=== PATIENT | female | born 1995 | race Two or more races ===

== ENCOUNTER → 2021-11-30 | Outpatient (CLI) | payer MEDICAID ==
[2021-11-30 12:50] LABS: Basophils # (auto) 0 10 ^3/uL (0-0.2); Basophils % (auto) 0.4 % (0.0-2.0); Eosinophils # (auto) 0.1 10 ^3/uL (0-0.8); Eosinophils % (auto) 0.9 % (0.0-7.0); Hematocrit 38.9 % (36.0-46.0); Hemoglobin 13.4 g/dL (12.2-16.2); Lymphocytes # (auto) 1.6 10 ^3/uL (0.4-5.4); Lymphocytes % (auto) 22.4 % (10.0-50.0); Mean Corpuscular Hemoglobin 30.8 pg (28.0-32.0); Mean Corpuscular Hgb Conc. 34.3 g/dL (32.0-36.0); Mean Corpuscular Volume 89.6 fL (80.0-100.0); Monocytes # (auto) 0.4 10 ^3/uL (0-1.3); Monocytes % (auto) 5.6 % (0.0-12.0); Neutrophils # (auto) 5.2 10 ^3/uL (1.6-8.6); Neutrophils % (auto) 70.7 % (37.0-80.0); Nucleated Red Blood Cells % 0.1 %; Red Blood Cells 4.34 10^6/uL (4.0-5.20); White Blood Cell 7.3 10^3/uL (4.4-10.8)
[2021-11-30 13:13] LABS: Alcohol, Urine < 3.0 mg/dL (0-10); Amphetamine Screen, Urine NEGATIVE (NEGATIVE); Barbiturate Scree,Urine NEGATIVE (NEGATIVE); Benzodiazephine Screen, Urine NEGATIVE (NEGATIVE); Cannabinoid Screen, Urine NEGATIVE (NEGATIVE); Cocaine Screen, Urine NEGATIVE (NEGATIVE); Opiate Scree,Urine NEGATIVE (NEGATIVE); Phencyclidine Screen, Urine NEGATIVE (NEGATIVE)
[2021-12-01 06:06] LABS: RPR Non Reactive (Non Reactive)
== END | disposition home or self-care (01) ==
LOC: LAB 12:02
PROVIDERS: ATTEND Obstetrics & Gynecology
DX: Z34.00 Encounter for supervision of normal first pregnancy, unspecified trimester (principal); Z31.430 Encounter of female for testing for genetic disease carrier status for procreative management; N39.0 Urinary tract infection, site not specified; N36.0 Urethral fistula
CPT/HCPCS: 36415; 80307; 83036; 84112; 84702; 85025; 86592; 86703; 86762; 86850; 86900; 86901; 87086; 87340

== ENCOUNTER → 2022-01-25 | Outpatient (CLI) | payer MEDICAID | END | disposition home or self-care (01) | LOC: LAB 10:36 | PROVIDERS: ATTEND Obstetrics & Gynecology | DX: Z34.80 Encounter for supervision of other normal pregnancy, unspecified trimester (principal) | CPT/HCPCS: 87086; 87088 ==

== ENCOUNTER 2022-04-19 23:07 | Inpatient (IN) | payer MEDICAID ==
[~2022-04-19] VITALS: Ht 160 cm; Wt 85.7 kg
[2022-04-19] MEDS ORDERED: LIDOCAINE 2%HCL (LOCAL ANESTH.) INJ 10ml MDV IJ PRN (23:45)
[2022-04-19] MEDS ORDERED: LACT. RINGERS/OXYTOCIN 20UNITS 1,000 ML IV SCH (23:45)
[2022-04-19] MEDS ORDERED: LACT. RINGERS/OXYTOCIN 20UNITS 500 ML IV ONE (23:45)
[2022-04-19] MEDS ORDERED: WITCH HAZEL-GLYCERIN PAD TOP PRN (23:45)
[2022-04-19] MEDS ORDERED: PENICILLIN G POT 5MIL/D5 50ML 50 ML IV ONE (23:45)
[2022-04-19] MEDS ORDERED: PROMETHAZINE HCL 25 MG/ML 1ML IV PRN (23:45)
[2022-04-19] MEDS ORDERED: PHISODERM TOP SOLN 240ML BTL TOP PRN (23:45)
[2022-04-19] MEDS ORDERED: BUTORPHANOL TARTRATE 2 MG/1 ML VIAL IV PRN ×2 (23:45)
[2022-04-19] MEDS ORDERED: TERBUTALINE SULFATE 1 MG/ML 1ML VIAL SC PRN (23:45)
[2022-04-19] MEDS ORDERED: DERMOPLAST 60ML BOTTLE TOP PRN (23:45)
[2022-04-20 00:15] LABS: Urine Bacteria FEW /hpf (None Seen); Urine Blood TRACE /uL (Negative); Urine Mucus FEW (None Seen); Urine Specific Gravity 1.021 (1.001-1.035); Urine WBC 10 /hpf (0 - 5)
[2022-04-20] MEDS ORDERED: LACT. RINGERS/OXYTOCIN 20UNITS 500 ML IV ONE (00:15)
[2022-04-20 00:25] LABS: INR 0.94 (0.9-1.15); Partial Thromboplastin Time 26.1 sec (23.6-33.0)
[2022-04-20 00:25] LABS: Alcohol, Urine < 3.0 mg/dL (0-10); Amphetamine Screen, Urine NEGATIVE (NEGATIVE); Barbiturate Scree,Urine NEGATIVE (NEGATIVE); Benzodiazephine Screen, Urine NEGATIVE (NEGATIVE); Cannabinoid Screen, Urine NEGATIVE (NEGATIVE); Cocaine Screen, Urine NEGATIVE (NEGATIVE); Opiate Scree,Urine NEGATIVE (NEGATIVE); Phencyclidine Screen, Urine NEGATIVE (NEGATIVE)
[2022-04-20 00:27] LABS: Basophils # (auto) 0 10 ^3/uL (0-0.2); Basophils % (auto) 0.3 % (0.0-2.0); Eosinophils # (auto) 0.3 10 ^3/uL (0-0.8); Eosinophils % (auto) 2.2 % (0.0-7.0); Hematocrit 39.4 % (36.0-46.0); Lymphocytes # (auto) 1.5 10 ^3/uL (0.4-5.4); Lymphocytes % (auto) 12.1 % (10.0-50.0); Mean Corpuscular Hemoglobin 30.1 pg (28.0-32.0); Mean Corpuscular Hgb Conc. 32.9 g/dL (32.0-36.0); Mean Corpuscular Volume 91.5 fL (80.0-100.0); Monocytes # (auto) 0.7 10 ^3/uL (0-1.3); Neutrophils # (auto) 9.8 10 ^3/uL (1.6-8.6); Neutrophils % (auto) 79.4 % (37.0-80.0); Nucleated Red Blood Cells % 0.1 %; Red Cell Distribution Width 15.5 % (11.8-14.3); White Blood Cell 12.3 10^3/uL (4.4-10.8)
[2022-04-20] MEDS ORDERED: AMPICILLIN SOD 1 GM VL ONE ×2 (00:27→04:14)
[2022-04-20 00:28] LABS: Albumin 2.6 g/dL (3.4-5.0); BUN/Creatinine Ratio 8.7; Calcium 8.6 mg/dL (8.5-10.1); Potassium 3.5 mmol/L (3.5-5.1)
[2022-04-20] MEDS ORDERED: AMPICILLIN SOD 2GM INJ 2 GM in SODIUM CHL 0.9% 100 ML IV ONE ×3 (00:30)
[2022-04-20 00:31] LABS: Bilirubin, Total 0.3 mg/dL (0.2-1.0); Total Protein 6.7 g/dL (6.4-8.2)
[2022-04-20] MEDS: LACTATED RINGER'S 1,000 ML IV SCH ×2 (00:41→07:45)
[2022-04-20] MEDS ORDERED: ONDANSETRON ODT 4 MG TAB PO ONE (01:45)
[2022-04-20] MEDS ORDERED: ONDANSETRON HCL 4 MG/2 ML VIAL ONE (02:15)
[2022-04-20] MEDS ORDERED: NALOXONE HCL 0.4 MG/ML VIAL IV ONE (02:30)
[2022-04-20] MEDS ORDERED: LACTATED RINGER'S 1,000 ML IV ONE (02:30)
[2022-04-20] MEDS ORDERED: ROPIVACAINE HCL 200 ML EPI SCH (02:30)
[2022-04-20] MEDS ORDERED: ePHEDrine SULFATE 50 MG/ML AMP IV ONE (02:30)
[2022-04-20] MEDS ORDERED: fentaNYL CITRATE 100 MCG/2 ML VL IV ONE (02:30)
[2022-04-20] MEDS ORDERED: ONDANSETRON HCL 4 MG/2 ML VIAL IV ONE (02:30)
[2022-04-20] MEDS ORDERED: PENICILLIN G POTASSIUM 2,500,000 UNITS in D5W 5% 50 ML IV SCH (03:45)
[2022-04-20] MEDS ORDERED: PATIENTS OWN MEDICATION IV ONE (04:00)
[2022-04-20] MEDS ORDERED: AMPICILLIN INJ 1 GM in SODIUM CHL 0.9% 100 ML IV SCH ×3 (04:00→15:00)
[2022-04-20] MEDS ORDERED: GENTAMICIN SULF 80 MG/2 ML VIAL ONE (04:03)
[2022-04-20] MEDS: GENTAMICIN SULFATE 80 MG in D5W 5% 100 ML IV SCH ×2 (04:14→16:08)
[2022-04-20] MEDS ORDERED: ACETAMINOPHEN 325 MG TAB PO ONE (05:15)
[2022-04-20] MEDS ORDERED: SODIUM CHLORIDE 0.9% 1,000 ML IUPC SCH (05:30)
[2022-04-20] MEDS ORDERED: SODIUM CHLORIDE 0.9% 300 ML IUPC ONE (05:30)
[2022-04-20] MEDS ORDERED: LIDOCAINE 2% HCL (LOCAL ANESTH.) INJ 50ML MDV ONE (07:04)
[2022-04-20] MEDS ORDERED: ACETAMINOPHEN 325 MG TAB PO PRN (08:15)
[2022-04-20] MEDS: IBUPROFEN 600 MG TAB PO PRN (08:42)
[2022-04-20 11:00] VITALS: BP 105/47
[2022-04-20 15:00] VITALS: BP 110/50
[2022-04-20] MEDS: AMPICILLIN SOD 1 GM in SODIUM CHL 0.9% 50 ML IV SCH ×3 (15:16→23:54)
[2022-04-20 19:30] VITALS: BP 100/67
[2022-04-20 19:34] VITALS: BP 100/67
[2022-04-20] MEDS: DOCUSATE SOD 100 MG CAP PO SCH (21:43)
[2022-04-20 23:00] VITALS: BP 110/79
[2022-04-21 03:00] VITALS: BP 89/57
[2022-04-21] MEDS: AMPICILLIN SOD 1 GM in SODIUM CHL 0.9% 50 ML IV SCH (03:26)
[2022-04-21] MEDS: GENTAMICIN SULFATE 80 MG in D5W 5% 100 ML IV SCH (04:34)
[2022-04-21 07:06] LABS: RPR Non Reactive (Non Reactive)
[2022-04-21] MEDS ORDERED: LIDOCAINE HCL 2 %PF INJ 10ML AMP IJ ONE (08:00)
[2022-04-21 11:30] VITALS: BP 109/67
[2022-04-21 14:32] VITALS: BP 112/54
[2022-04-21] MEDS: IBUPROFEN 600 MG TAB PO PRN (14:34)
[2022-04-21 19:10] VITALS: BP 111/52
[2022-04-21 23:00] VITALS: BP 118/70
[2022-04-22] MEDS: HALOPERIDOL 1 MG TAB PO SCH ×2 (01:00→22:00)
[2022-04-22] MEDS: DOCUSATE SOD 100 MG CAP PO SCH ×2 (01:04→21:57)
[2022-04-22 03:00] VITALS: BP 110/66
[2022-04-22] MEDS ORDERED: diphenhdrAMINE HCL 25 MG CAP PO ONE (03:00)
[2022-04-22 07:00] VITALS: BP 123/73
[2022-04-22 11:00] VITALS: BP 119/70
[2022-04-22] MEDS ORDERED: TETANUS-DIPTH-ACEL PERTUSSIS 0.5ML SYR Tdap IM ONE (14:45)
[2022-04-22 15:24] VITALS: BP 109/70
[2022-04-22 18:30] VITALS: BP 106/62
[2022-04-22] MEDS: IBUPROFEN 600 MG TAB PO PRN (21:58)
[2022-04-22 22:30] VITALS: BP 108/59
== END 2022-04-22 22:43 | disposition home or self-care (01) | DRG 560 ==
LOC: LDRP 23:07 → OBSVTOIN 23:30 → LDRP 04-20 00:08
PROVIDERS: ADMIT Obstetrics & Gynecology; ATTEND Obstetrics & Gynecology
PROC: 10D07Z6 Extraction of Products of Conception, Vacuum, Via Natural or Artificial Opening (ICD-10-PCS; principal; 2022-04-20)
PROC: 00HU33Z Insertion of Infusion Device into Spinal Canal, Percutaneous Approach (ICD-10-PCS; 2022-04-20)
PROC: 3E0R3BZ Introduction of Anesthetic Agent into Spinal Canal, Percutaneous Approach (ICD-10-PCS; 2022-04-20)
PROC: 0W8NXZZ Division of Female Perineum, External Approach (ICD-10-PCS; 2022-04-20)
PROC: 3E0234Z Introduction of Serum, Toxoid and Vaccine into Muscle, Percutaneous Approach (ICD-10-PCS; 2022-04-22)
DX: O69.81X0 Labor and delivery complicated by cord around neck, without compression, not applicable or unspecified (principal); Z37.0 Single live birth; O41.1230 Chorioamnionitis, third trimester, not applicable or unspecified; O75.2 Pyrexia during labor, not elsewhere classified; O99.344 Other mental disorders complicating childbirth; O76 Abnormality in fetal heart rate and rhythm complicating labor and delivery; Z20.822 Contact with and (suspected) exposure to COVID-19; F53.0 Postpartum depression; Z23 Encounter for immunization; O66.5 Attempted application of vacuum extractor and forceps; Z91.51 Personal history of suicidal behavior; Z3A.38 38 weeks gestation of pregnancy
CPT/HCPCS: 36415; 59025; 59409; 62282; 76818; 80053; 80307; 81001; 81002; 84112; 85025; 85610; 85730; 86592; 86850; 86900; 86901; 90715; 94760; 96360; 96361; 96372; 96374; G0378; J2001; J2405; J2590; J7060